=== PATIENT | female | born 1985 | race Caucasian/White ===

== ENCOUNTER 2018-02-15 06:29 | Day surgery (SDC) | payer MEDICAID ==
[~2018-02-15] VITALS: Ht 165.1 cm; Wt 75.8 kg
[~2018-02-15 06:29] MED LIST: OCELLA 3 MG-0.1 EACH PO
[2018-02-15 06:45] LABS: HEMATOCRIT 40.9 % (36.0-48.0); HEMOGLOBIN 14.8 g/dL (12-16); MCH 30.9 pg (26.0-34.0); MCHC 36.2 g/dL (31.0-37.0); MCV 85.4 fL (80.0-100.0); MEAN PLATELET VOLUME 8.9 fL (7.4-10.4); RBC 4.79 10x6/uL (4.00-5.40); RDW 12.5 % (11.5-14.5); WBC 5.3 10x3/uL (4.8-10.8)
[2018-02-15 07:40] VITALS: BP 114/69; Ht 165.1 cm; Wt 75.8 kg
[2018-02-15 07:52] LABS: HCG URINE NEGATIVE (NEGATIVE)
[2018-02-15] MEDS ORDERED: HYDROCODON-ACE1 EAC7 PO (09:29)
== END 2018-02-15 11:50 | disposition home or self-care (01) ==
LOC: D.OPS 06:29 → D.PAN 09:00 → D.OPS 11:50
PROVIDERS: Anesthesiology; Surgery
DX: K81.1 Chronic cholecystitis (principal); Z01.812 Encounter for preprocedural laboratory examination